=== PATIENT | male | born 1940 | race Caucasian/White ===

== ENCOUNTER 2017-07-14 11:25 | Outpatient (POV) | END 2017-07-14 17:00 | LOC: OUTPT 11:25 | PROVIDERS: ATTEND Otolaryngology | DX: R42 Dizziness and giddiness (principal) ==

== ENCOUNTER 2017-07-19 15:56 | Outpatient (CLI) | END 2017-07-19 15:57 | disposition home or self-care (01) | LOC: RHC-LAB 15:56 | PROVIDERS: ATTEND Emergency Medicine | DX: E11.9 Type 2 diabetes mellitus without complications (principal); E78.5 Hyperlipidemia, unspecified; I10 Essential (primary) hypertension; K21.9 Gastro-esophageal reflux disease without esophagitis; F33.1 Major depressive disorder, recurrent, moderate | CPT/HCPCS: 36415; 80053; 80061; 83036; 84443; 85025 ==

== ENCOUNTER 2017-08-03 15:27 | Outpatient (CLI) ==
[2017-08-04 17:31] VITALS: BMI 20.7
== END 2017-08-03 15:28 | disposition home or self-care (01) ==
LOC: FCC-LAB 15:27
PROVIDERS: ATTEND Emergency Medicine
DX: E78.5 Hyperlipidemia, unspecified (principal); E11.9 Type 2 diabetes mellitus without complications; D64.9 Anemia, unspecified; E87.5 Hyperkalemia
CPT/HCPCS: 36415; 80053; 82607; 82728; 82746; 83540; 83550; 84436; 84443; 84466; 84479; 85025; 85045

== ENCOUNTER 2017-08-04 16:43 | Inpatient (IN) ==
[2017-08-04] MEDS ORDERED: KAYEXALATE SUSP PO STA (16:53)
[2017-08-04] MEDS ORDERED: TYLENOL PO PRN (16:54)
[2017-08-04 17:31] VITALS: BMI 20.7
[2017-08-04] MEDS: SODIUM CHLORIDE 1,000 ML IV SCH (18:00)
[2017-08-04] MEDS ORDERED: INSULIN GLARGINE HUM REC ANLOG 12 UNIT SQ SCH (21:00)
[2017-08-04] MEDS: LOPRESSOR PO SCH (21:08)
[2017-08-04] MEDS: LANTUS SUBCUT SCH (21:12)
[2017-08-05] MEDS: PROTONIX PO SCH (05:43)
--- NOTE | 2017-08-05 08:14 | DI ---
EXAM: Chest one view HISTORY: Coughing COMPARISON: None TECHNIQUE: Single view of the chest was performed FINDINGS: No airspace consolidation. Granulomatous calcification. Possible calcified pleural plaqui ng. There is no pleural effusion or pneumothorax. The heart is normal in size. The mediastinal con tour is normal, noting atherosclerosis. There are no acute abnormalities of the bones. IMPRESSION: 1. No acute cardiopulmonary process. 2. Possible calcified pleural plaquing.
[2017-08-05] MEDS ORDERED: CITRATE OF MAGNESIA PO STA (08:17)
[2017-08-05] MEDS ORDERED: NON-FORMULARY MEDICATION (Lovastatin [Lovastatin] 40 MG) PO SCH (09:00)
[2017-08-05] MEDS ORDERED: PAROXETINE HCL 30 MG PO SCH (09:00)
[2017-08-05] MEDS: TRADJENTA PO SCH (09:25)
[2017-08-05] MEDS: PAXIL PO SCH (09:25)
[2017-08-05] MEDS: MEVACOR PO SCH (09:26)
[2017-08-05] MEDS: MOBIC PO SCH (09:26)
[2017-08-05] MEDS: LOPRESSOR PO SCH ×2 (09:26→20:14)
[2017-08-05] MEDS: LANTUS SUBCUT SCH ×2 (09:32→20:14)
[2017-08-05] MEDS: SODIUM CHLORIDE 1,000 ML IV SCH (17:29)
[2017-08-06] MEDS: PROTONIX PO SCH (05:48)
[2017-08-06] MEDS ORDERED: ZESTRIL PO SCH (09:00)
[2017-08-06] MEDS: LOPRESSOR PO SCH (09:49)
[2017-08-06] MEDS: MEVACOR PO SCH (09:49)
[2017-08-06] MEDS: MOBIC PO SCH (09:49)
[2017-08-06] MEDS: TRADJENTA PO SCH (09:49)
[2017-08-06] MEDS: PAXIL PO SCH (09:50)
[2017-08-06] MEDS: LANTUS SUBCUT SCH (09:56)
[2017-08-06 09:58] VITALS: BP 151/61; TEMP 97.9
--- NOTE | 2017-08-27 13:45 | DS ---
DATE OF SERVICE: 08/06/17 FINAL DIAGNOSIS: 1. HYPERKALEMIA 2. DEHYDRATION 3. CHEST PAIN, NONCARDIAC 4. DIABETES TYPE 2 5. GERD 6. ANEMIA 7. ANXIETY 8. PANCREATITIS BY HISTORY 9. CHOLECYSTECTOMY 10. LEFT ANKLE SURGERY 11. FORMER SMOKER DISCHARGE INSTRUCTIONS: 1. Discharge the patient home 2. Continue to monitor sugars three times a day 3. Hypoglycemia discussed in detail 4. Followup in the office within one week MEDICATIONS AT DISCHARGE: Continue Lantus 12 units b.i.d. Aspirin Clotrimazole Tradjenta Lovastatin Meloxicam Metoprolol Pantoprazole Protonix NEW PRESCRIPTIONS: Zestril 10 mg p.o. daily DIET INSTRUCTIONS: Consistent carbs ACTIVITY: Get plenty of rest at home. Gradually increase your activity level according to your toleration. DISEASE SPECIFIC EDUCATION: Dehydration, hyperkalemia, increased hydration discussed. Hypoglycemia from diabetic medications discussed. HOSPITAL COURSE: The patient was seen initially as outpatient. He needs blood work for the hyperkalemia. It showed potassium was 6.1, BUN 26, creatinine 1.50. Advised to come for admission. Potassium in the office was more than 5.0. BUN and creatinine gradually went down with IV fluids. Iron showed iron deficiency anemia. Advised to take iron tablets [id number]. He did have a colonoscopy and endoscopy done in the past. Hospital stay was uneventful. BUN and creatinine became almost normal. Hemoglobin, hematocrit were stable. The patient was up and about walking, did not have any problems. He was able to tolerate diet fine. He had no nausea, vomiting or diarrhea. As the patient was doing well, did not have any problems, he was discharged home. SPECIFIC ORDERS: More than 45 minutes today. TIME SPENT: MORE THAN 35 MINUTES MTDD
--- NOTE | 2017-08-27 14:02 | PN ---
DATE OF SERVICE: 08/05/17 SUBJECTIVE: The patient is admitted with hyperkalemia which has resolved, most likely from hemodilution. He complains of the coughing, congestion, constipation and having some memory issues. Otherwise, no chest pain, PND, or orthopnea. REVIEW OF SYSTEMS: CONSTITUTIONAL: No fever, no chills. HEENT: Normal. ENDOCRINE: No weight gain, no weight loss. CVS: No angina symptoms. No CHF symptoms. No palpitations. No atypical chest pain for CAD. No shortness of breath. No PND, no orthopnea. RESPIRATORY: Cough and congestion. No hemoptysis. GI: No nausea, no vomiting. No abdominal pain. : No hematuria. No polyuria. MUSCULOSKELETAL: No joint swelling. PSYCHIATRIC: Not anxious. No depression. No suicidal thoughts. No homicidal thoughts. SKIN: Intact. No rash. PHYSICAL EXAMINATION: V/S: BP 139/72, respiratory rate 20, heart rate 63, temperature 97.8. Saturation 96%. HEENT: Normocephalic, atraumatic. Mucosa dry. Pallor positive. No icterus. NECK: Supple. No JVD, no carotid bruit. No lymphadenopathy. LUNGS: Clear to auscultation. No rales or rhonchi. HEART: S1, S2 normal. No S3. No murmur, gallop or regurgitation. ABDOMEN: Soft, nontender. Bowel sounds active. No rigidity. No rebound or guarding. No CVA tenderness. EXTREMITIES: No cyanosis, clubbing or pedal edema. MUSCULOSKELETAL: No joint swelling. NEUROLOGIC: Awake, alert, oriented times three. No focal deficit. LYMPHATIC: No lymph nodes palpable. SKIN: Intact. LABS: White count 10.17, hemoglobin 11.0, hematocrit 34.3. Platelet count is 333. Sodium 140, potassium 4.8, chloride 105, bicarb 26, BUN 22, creatinine 0.98, glucose 140. ASSESSMENT: 1. HYPERKALEMIA 2. ACUTE ON CHRONIC RENAL FAILURE 3. DIABETES, LABILE 4. HISTORY OF PANCREATITIS 5. HYPERTENSION PLAN: 1. CT scan of head 2. Mini mental status 3. Accu-Cheks with coverage 4. Out of bed to chair 5. Activity as tolerated TIME SPENT: More than 35 minutes MTDD
== END 2017-08-06 11:46 | disposition home or self-care (01) | DRG 641 ==
LOC: MEDSURG B 16:43
PROVIDERS: ADMIT Emergency Medicine; ATTEND Emergency Medicine
DX: E87.5 Hyperkalemia (principal); K86.1 Other chronic pancreatitis; N17.9 Acute kidney failure, unspecified; D50.9 Iron deficiency anemia, unspecified; R07.89 Other chest pain; E86.0 Dehydration; I10 Essential (primary) hypertension; I12.9 Hypertensive chronic kidney disease with stage 1 through stage 4 chronic kidney disease, or unspecified chronic kidney disease; E11.22 Type 2 diabetes mellitus with diabetic chronic kidney disease; N18.9 Chronic kidney disease, unspecified; F41.9 Anxiety disorder, unspecified; K21.9 Gastro-esophageal reflux disease without esophagitis; Z90.49 Acquired absence of other specified parts of digestive tract; Z87.891 Personal history of nicotine dependence; Z79.84 Long term (current) use of oral hypoglycemic drugs; Z79.899 Other long term (current) drug therapy
CPT/HCPCS: 36415; 80053; 82550; 82962; 84484; 85025; 93005; 93010; 99223; 99233; 99239

== ENCOUNTER 2017-08-12 15:14 | Outpatient (CLI) | END 2017-08-12 15:15 | disposition home or self-care (01) | LOC: RHC-LAB 15:14 | PROVIDERS: ATTEND Emergency Medicine | DX: E78.5 Hyperlipidemia, unspecified (principal); D64.9 Anemia, unspecified; I10 Essential (primary) hypertension | CPT/HCPCS: 36415; 80053; 85025 ==

== ENCOUNTER 2017-11-16 14:26 | Outpatient (CLI) | END 2017-11-16 14:27 | disposition home or self-care (01) | LOC: RHC-LAB 14:26 | PROVIDERS: ATTEND Emergency Medicine | DX: E11.9 Type 2 diabetes mellitus without complications (principal); E78.5 Hyperlipidemia, unspecified; I10 Essential (primary) hypertension | CPT/HCPCS: 36415; 80053; 80061; 83036; 84443; 85025 ==